=== PATIENT | female | born 1975 | race American Indian/Alaskan Native ===

== ENCOUNTER 2022-05-06 02:53 | Emergency (ER) | payer MEDICAID ==
[2022-05-06] MEDS ORDERED: ETOMIDATE 20 MG/10 ML INJ IV ONE ×2 (03:01→05:45)
[2022-05-06] MEDS ORDERED: SUCCINYLCHOLINE CHLORIDE 200 MG/10 ML INJ MDV ONE (03:02)
[2022-05-06] MEDS ORDERED: SODIUM CHLORIDE 0.9% 1000 ML 1,000 ML ONE ×3 (03:22→07:36)
[2022-05-06] MEDS ORDERED: MIDAZOLAM 5 MG/5 ML INJ MDV IV ONE (03:26)
[2022-05-06] MEDS ORDERED: KETAMINE 200 MG/20 ML INJ MDV IV ONE (03:28)
[2022-05-06] MEDS ORDERED: KETAMINE 500 MG/5 ML VIAL MDV ONE (03:28)
[2022-05-06] MEDS ORDERED: MINERAL OIL/PETROLATUM, WHITE OPHTH OINT 3.5 GM OU PRN (03:35)
[2022-05-06] MEDS ORDERED: LIP THERAPY VASELINE TP PRN (03:35)
[2022-05-06] MEDS ORDERED: SODIUM CHLORIDE 0.9% 1000 ML 1,000 ML IV ONE (03:37)
[2022-05-06] MEDS ORDERED: ONDANSETRON 4 MG/2 ML INJ IV ONE (03:40)
--- NOTE | 2022-05-06 03:57 | Emergency Department Report ---
<LEIA BRANTLEY - Last Filed: 05/06/22 15:24> ED Altered Mental Status HPI - General Stated Complaint: COVID/POSS SEIZURE Time Seen by Provider: 05/06/22 02:53 - Related Data Allergies Allergy/AdvReac Type Severity Reaction Status Date / Time No Known Allergies Allergy Verified 05/06/22 15:39 - Lab Data Result diagrams: 05/06/22 04:06 05/06/22 04:06 - Medical Decision Making CT head reveals acute intraventricular hemorrhage. I discussed case with Dr. Cody who recommended emergent transfer. I spoke with the television production assistant NSGY at [facility]. On my examination (off sedation) gag and corneal reflexes are absent. I discussed poor prognosis with daughter over the phone. [facility] willing to accept per family request. Family will decide whether to place patient on comfort measures or transfer to [facility] and call back with their decision. Signed out at shift change to Dr. Douglas. ED Disposition Clinical Impression: Intracranial hemorrhage, Obtunded, Hydrocephalus Disposition: 02 SHORT TERM HOSPITAL Condition: Stable Referrals: NOVA HANEY MD [Primary Care Provider] - 3-5 Days <SELENA DOUGLAS - Last Filed: 05/06/22 17:16> ED Course - Reevaluation(s) Reevaluation #1: 05/06/22 16:25 Patient not currently on any sedation. As per verbal report from Dr. Brantley, brainstem reflexes are not present. Blood pressure 110/45. Extensive discussion had with patient's daughter, Ms. Bella Herrera Discussed poor neurologic prognosis, and patient's goals of care. Essentially, the patient had instructed family to not pursue aggressive care if she had a poor prognosis, and was not neurologically salvageable All questions are answered. Ms. Blanco will discuss with her family, and we will rediscuss. 05/06/22 17:16 Family is requesting transfer to [facility] for aggressive care. They are specifically requesting medical transfer to [facility]. Dr. Thompson will be the accepting physician. - Lab Data Result diagrams: 05/06/22 04:06 05/06/22 04:06 - Radiology Data CT HEAD WITHOUT CONTRAST INDICATION / CLINICAL INFORMATION: Altered Mental Status. TECHNIQUE: All CT scans at this location are performed using CT dose reduction for ALARA by means of automated exposure control. COMPARISON: None available. FINDINGS: HEMORRHAGE: Moderately extensive intraventricular hemorrhage. Large amount of hemorrhage is in the left lateral ventricle. Hemorrhage extends into the right lateral ventricle, 3rd ventricle, and 4th ventricle. No definite subarachnoid hemorrhage. EXTRA-AXIAL SPACES: Sulci are effaced related to cerebral swelling. VENTRICULAR SYSTEM: Bilateral ventr iculomegaly, left greater than right. CEREBRAL PARENCHYMA: Subependymal, periventricular edema. No acute territorial infarct. Hemorrhage could potentially arise from left basal ganglia. MIDLINE SHIFT / HERNIATION: None. CEREBELLUM / BRAINSTEM: No significant abnormality. ORBITS: Normal as visualize d. SOFT TISSUES: No significant abnormality. SKULL: No significant abnormality. PARANASAL SINUSES / MASTOID AIR CELLS: Small air-fluid level in the right maxillary sinus. ADDITIONAL FINDINGS: None. IMPRESSION: 1. Moderately extensive intraventricular hemorrhage with ventriculomegaly possibly representing obstructive hydrocephalus. Hemorrhage source is uncertain but could potentially arise from the left basal ganglia with intraventricular extension. CTA head is recommended for further evaluation. 2. Moderate cerebral edema but no herniation. CRITICAL RESULT: Intracranial hemorrhage Time of Discovery ([employer]/CDT): 2:30 PM Time of Communicati on ([employer]/CDT): 2:37 PM Licensed Practitioner Receiving Report: Dr. Douglas in the ED Read-Back Performed: Yes. Signer Name: Vesna Carrillo MD Signed: 05/06/2022 2:38 PM Workstation Name: [id number] <LEIA ROSE - Last Filed: 05/06/22 21:30> ED Altered Mental Status HPI - General Source: EMS Mode of arrival: Stretcher Limitations: Altered Mental Status - History of Present Illness Initial Comments: 46-year-old obese female with no known significant past medical history presents to the hospital with alteration in mental status and vomiting. History obtained from EMS. They state daughter at the scene inform them that patient is COVID- positive. For the last 3 to 4 days she has had nausea and vomiting. Tonight after persistent nausea and vomiting she went to sleep for an hour and they could not wake her up. They report that patient did have vomiting in route to the hospital and therefore placed on her side but minimal response to painful stimuli. Room air saturation 93%. Patient was noted to be incontinent of urine. No known history of seizures. Patient is obtunded and not unable to obtain any history of present illness ED Review of Systems ROS: Stated complaint: COVID/POSS SEIZURE Other details as noted in HPI Comment: Unobtainable due to pts medical conditions ED Physical Exam - General Limitations: Altered Mental Status - Other Other exam information: General: Unresponsive Head: Atraumatic Eyes: Pupils equal reactive to light ENT: Moist mucous membranes, vomit noted in nostril Neck: Normal appearance Chest: Clear to auscultation bilaterally, sonorous respiratory CV: Regular rate and rhythm Abdomen: Soft, normal bowel sounds, nontender, nondistended, no rebound or guarding : Urinary incontinence Back: Normal inspection Extremity: Normal inspection Neuro: Patient is obtunded. Minimal response with sternal rub. Sonorous respirations. GCS equals 6 (E1, V1, M4). Psych: Unresponsive Skin: No rash, warm to touch ED Course Vital Signs 05/06/22 05/06/22 05/06/22 02:55 03:35 03:37 Temperature 98.2 F Pulse Rate 76 Respiratory 22 Rate Blood Pressure 235/174 Blood Pressure 152/104 [Right] O2 Sat by Pulse 96 96 Oximetry 05/06/22 05/06/22 05/06/22 03:41 03:56 04:00 Temperature Pulse Rate 119 H 110 H Respiratory Rate Blood Pressure Blood Pressure 196/137 190/119 179/125 [Right] O2 Sat by Pulse Oximetry 05/06/22 05/06/22 05/06/22 04:07 04:10 05:24 Temperature Pulse Rate 94 H 100 H 100 H Respiratory 10 L 16 12 Rate Blood Pressure 179/125 Blood Pressure 179/125 [Right] O2 Sat by Pulse 97 99 99 Oximetry 05/06/22 05/06/22 05/06/22 05:39 05:53 06:00 Temperature Pulse Rate 82 133 H Respiratory 29 H 17 Rate Blood Pressure Blood Pressure 270/110 [Right] O2 Sat by Pulse 100 98 Oximetry 05/06/22 05/06/22 05/06/22 06:16 06:24 06:30 Temperature Pulse Rate 100 H 159 H 136 H Respiratory 20 32 H 18 Rate Blood Pressure Blood Pressure 218/135 [Right] O2 Sat by Pulse 99 99 95 Oximetry 05/06/22 05/06/22 05/06/22 06:46 06:48 07:00 Temperature Pulse Rate 170 H 170 H 167 H Respiratory 18 26 H 18 Rate Blood Pressure Blood Pressure 136/89 [Right] O2 Sat by Pulse 97 97 96 Oximetry 05/06/22 05/06/22 05/06/22 07:16 07:30 07:46 Temperature Pulse Rate 166 H 153 H 145 H Respiratory 18 17 18 Rate Blood Pressure 114/50 Blood Pressure [Right] O2 Sat by Pulse 96 97 96 Oximetry 05/06/22 05/06/22 05/06/22 07:51 08:00 08:16 Temperature Pulse Rate 142 H 138 H 130 H Respiratory 18 18 Rate Blood Pressure 114/53 Blood Pressure [Right] O2 Sat by Pulse 97 Oximetry 05/06/22 05/06/22 05/06/22 08:22 08:30 08:45 Temperature Pulse Rate 126 H 121 H 92 H Respiratory 18 18 Rate Blood Pressure 99/51 Blood Pressure 100/56 [Right] O2 Sat by Pulse 98 98 99 Oximetry 05/06/22 05/06/22 05/06/22 08:46 09:00 09:13 Temperature Pulse Rate 112 H 103 H 93 H Respiratory 17 18 18 Rate Blood Pressure Blood Pressure 99/51 [Right] O2 Sat by Pulse 99 99 99 Oximetry 05/06/22 05/06/22 05/06/22 09:16 09:30 09:46 Temperature Pulse Rate 92 H 89 87 Respiratory 18 18 18 Rate Blood Pressure Blood Pressure [Right] O2 Sat by Pulse 99 99 99 Oximetry 05/06/22 05/06/22 05/06/22 10:00 10:04 10:31 Temperature Pulse Rate 85 85 81 Respiratory 18 18 18 Rate Blood Pressure Blood Pressure 95/55 93/61 [Right] O2 Sat by Pulse 99 99 Oximetry 05/06/22 05/06/22 05/06/22 11:12 11:43 14:14 Temperature Pulse Rate 79 76 72 Respiratory 18 16 Rate Blood Pressure Blood Pressure 105/66 93/57 [Right] O2 Sat by Pulse 99 98 98 Oximetry 05/06/22 05/06/22 05/06/22 14:37 16:15 17:56 Temperature Pulse Rate 72 61 61 Respiratory 17 Rate Blood Pressure Blood Pressure 110/55 [Right] O2 Sat by Pulse 97 98 97 Oximetry 05/06/22 05/06/22 20:57 21:17 Temperature Pulse Rate 58 L 58 L Respiratory Rate Blood Pressure Blood Pressure 105/53 [Right] O2 Sat by Pulse 98 Oximetry - Reevaluation(s) Reevaluation #1: 05/06/22 Patient seen immediate upon ED arrival. Decision made to intubate given low GCS score and minimal response to pain with continued episodes of vomiting or urinary incontinence 05/06/22 05:25 We had difficulty obtaining patient's blood pressure and pressures were recorded initially from blood pressure cuff placed in the right lower leg 05/06/22 06:01 Hypertension noted however, patient is also agitated on the vent and requires increased sedation. Heart rate 155. Nurse instructed to increase propofol. Heart rate decreased to 106. Nurse instructed to liberally increase propofol as long as blood pressure to achieve adequate sedation. Imaging test pending - Intubation Time Out Performed: Yes Sedative: Etomidate Mg Given: 20 Paralytic: Succinylcholine Mg Given: 120 Laryngoscope: fiberoptic video scope Size: 3 ET Tube Size: 7.5 Tube Secured Depth (cm): 25 Tube Secured Location: lips Tube Placement Confirmation: visualized tube passing t, equal breath sounds bilat, no breath sounds over epi, confirmation by capnometr Patient Tolerated Procedure: well, no complications Intubation Complications: none Additional Comments: Shortly after intubation patient became unresponsive and fighting the vent. During that time she had a period of hypoxia. She required administration of IV Versed and initiation of propofol. Patient was bagged until O2 saturation improved and placed back on the vent - Lab Data Result diagrams: 05/06/22 04:06 05/06/22 04:06 Lab Results 05/06/22 05/06/22 05/06/22 Range/Units 04:06 04:06 04:06 WBC 10.3 (4.5-11.0) K/mm3 RBC 6.00 H (3.65-5.03) M/mm3 Hgb 14.6 H (10.1-14.3) gm/dl Hct 44.6 H (30.3-42.9) % MCV 74 L (79-97) fl MCH 24 L (28-32) pg MCHC 33 (30-34) % RDW 16.3 H (13.2-15.2) % Plt Count 305 (140-440) K/mm3 Lymph % (Auto) 13.8 (13.4-35.0) % [place] % (Auto) 3.3 (0.0-7.3) % Eos % (Auto) 0.2 (0.0-4.3) % Baso % (Auto) 0.4 (0.0-1.8) % Lymph # (Auto) 1.4 (1.2-5.4) K/mm3 [place] # (Auto) 0.3 (0.0-0.8) K/mm3 Eos # (Auto) 0.0 (0.0-0.4) K/mm3 Baso # (Auto) 0.0 (0.0-0.1) K/mm3 Seg Neutrophils % 82.3 H (40.0-70.0) % Seg Neutrophils # 8.5 H (1.8-7.7) K/mm3 PT 12.8 (12.2-14.9) Sec. INR 0.85 L (0.87-1.13) D-Dimer 704.30 H (0-234) ng/mlDDU ABG pH (7.350-7.450) pH Units ABG pCO2 mm Hg ABG pO2 (80.0-90.0) mm Hg ABG HCO3 (20.0-26.0) mmol/L ABG O2 Saturation (95.0-99.0) % ABG O2 Content (0.0-44) ABG Base Excess (-2.0-3.0) mmol/L ABG Hemoglobin (12.0-16.0) gm/dl ABG Carboxyhemoglobin (0.0-5.0) % ABG Methemoglobin (0.0-1.5) % Oxyhemoglobin (95.0-99.0) % FiO2 % Sodium 137 (137-145) mmol/L Potassium 3.9 (3.6-5.0) mmol/L Chloride 95.5 L (98-107) mmol/L Carbon Dioxide 27 (22-30) mmol/L Anion Gap 18 mmol/L BUN 13 (7-17) mg/dL Creatinine 1.1 (0.6-1.2) mg/dL Estimated GFR 54 ml/min BUN/Creatinine Ratio 12 % Glucose 253 H (65-100) mg/dL Lactic Acid (0.7-2.0) mmol/L Calcium 9.8 (8.4-10.2) mg/dL Ferritin (10.0-200.0) ng/mL Total Bilirubin 0.40 (0.1-1.2) mg/dL AST 23 (5-40) units/L ALT 20 (7-56) units/L Alkaline Phosphatase 79 (35-129) units/L Ammonia (25-60) umol/L Lactate Dehydrogenase (91-180) units/L Total Creatine Kinase 207 H (30-135) units/L Troponin T < 0.010 (0.00-0.029) ng/mL C-Reactive Protein (0.00-1.30) mg/dL Total Protein 8.5 H (6.3-8.2) g/dL Albumin 4.0 (3.9-5) g/dL Albumin/Globulin Ratio 0.9 % HCG, Qual (Negative) Urine Color (Yellow) Urine Turbidity (Clear) Urine pH (5.0-7.0) Ur Specific [place] (1.003-1.030) Urine Protein (Negative) mg/dL Urine Glucose (UA) (Negative) mg/dL Urine Ketones (Negative) mg/dL Urine Blood (Negative) Urine Nitrite (Negative) Urine Bilirubin (Negative) Urine Urobilinogen (<2.0) mg/dL Ur Leukocyte Esterase (Negative) Urine WBC (Auto) (0.0-6.0) /HPF Urine RBC (Auto) (0.0-6.0) /HPF U Epithel Cells (Auto) (0-13.0) /HPF Urine Bacteria (Auto) (Negative) /HPF Hyaline Casts /LPF Salicylates (2.8-20.0) mg/dL Urine Opiates Screen Urine Methadone Screen Acetaminophen (10.0-30.0) ug/mL Ur Barbiturates Screen Ur Phencyclidine Scrn Ur Amphetamines Screen U Benzodiazepines Scrn Urine Cocaine Screen U Marijuana (THC) Screen Drugs of Abuse Note Plasma/Serum Alcohol (0-0.07) % 05/06/22 05/06/22 05/06/22 Range/Units 04:06 04:06 04:06 WBC (4.5-11.0) K/mm3 RBC (3.65-5.03) M/mm3 Hgb (10.1-14.3) gm/dl Hct (30.3-42.9) % MCV (79-97) fl MCH (28-32) pg MCHC (30-34) % RDW (13.2-15.2) % Plt Count (140-440) K/mm3 Lymph % (Auto) (13.4-35.0) % [place] % (Auto) (0.0-7.3) % Eos % (Auto) (0.0-4.3) % Baso % (Auto) (0.0-1.8) % Lymph # (Auto) (1.2-5.4) K/mm3 [place] # (Auto) (0.0-0.8) K/mm3 Eos # (Auto) (0.0-0.4) K/mm3 Baso # (Auto) (0.0-0.1) K/mm3 Seg Neutrophils % (40.0-70.0) % Seg Neutrophils # (1.8-7.7) K/mm3 PT (12.2-14.9) Sec. INR (0.87-1.13) D-Dimer (0-234) ng/mlDDU ABG pH (7.350-7.450) pH Units ABG pCO2 mm Hg ABG pO2 (80.0-90.0) mm Hg ABG HCO3 (20.0-26.0) mmol/L ABG O2 Saturation (95.0-99.0) % ABG O2 Content (0.0-44) ABG Base Excess (-2.0-3.0) mmol/L ABG Hemoglobin (12.0-16.0) gm/dl ABG Carboxyhemoglobin (0.0-5.0) % ABG Methemoglobin (0.0-1.5) % Oxyhemoglobin (95.0-99.0) % FiO2 % Sodium (137-145) mmol/L Potassium (3.6-5.0) mmol/L Chloride (98-107) mmol/L Carbon Dioxide (22-30) mmol/L Anion Gap mmol/L BUN (7-17) mg/dL Creatinine (0.6-1.2) mg/dL Estimated GFR ml/min BUN/Creatinine Ratio % Glucose (65-100) mg/dL Lactic Acid 3.10 H* (0.7-2.0) mmol/L Calcium (8.4-10.2) mg/dL Ferritin (10.0-200.0) ng/mL Total Bilirubin (0.1-1.2) mg/dL AST (5-40) units/L ALT (7-56) units/L Alkaline Phosphatase (35-129) units/L Ammonia (25-60) umol/L Lactate Dehydrogenase (91-180) units/L Total Creatine Kinase (30-135) units/L Troponin T (0.00-0.029) ng/mL C-Reactive Protein (0.00-1.30) mg/dL Total Protein (6.3-8.2) g/dL Albumin (3.9-5) g/dL Albumin/Globulin Ratio % HCG, Qual (Negative) Urine Color (Yellow) Urine Turbidity (Clear) Urine pH (5.0-7.0) Ur Specific [place] (1.003-1.030) Urine Protein (Negative) mg/dL Urine Glucose (UA) (Negative) mg/dL Urine Ketones (Negative) mg/dL Urine Blood (Negative) Urine Nitrite (Negative) Urine Bilirubin (Negative) Urine Urobilinogen (<2.0) mg/dL Ur Leukocyte Esterase (Negative) Urine WBC (Auto) (0.0-6.0) /HPF Urine RBC (Auto) (0.0-6.0) /HPF U Epithel Cells (Auto) (0-13.0) /HPF Urine Bacteria (Auto) (Negative) /HPF Hyaline Casts /LPF Salicylates < 0.3 L (2.8-20.0) mg/dL Urine Opiates Screen Urine Methadone Screen Acetaminophen 5.0 L (10.0-30.0) ug/mL Ur Barbiturates Screen Ur Phencyclidine Scrn Ur Amphetamines Screen U Benzodiazepines Scrn Urine Cocaine Screen U Marijuana (THC) Screen Drugs of Abuse Note Plasma/Serum Alcohol (0-0.07) % 05/06/22 05/06/22 05/06/22 Range/Units 04:06 04:06 04:06 WBC (4.5-11.0) K/mm3 RBC (3.65-5.03) M/mm3 Hgb (10.1-14.3) gm/dl Hct (30.3-42.9) % MCV (79-97) fl MCH (28-32) pg MCHC (30-34) % RDW (13.2-15.2) % Plt Count (140-440) K/mm3 Lymph % (Auto) (13.4-35.0) % [place] % (Auto) (0.0-7.3) % Eos % (Auto) (0.0-4.3) % Baso % (Auto) (0.0-1.8) % Lymph # (Auto) (1.2-5.4) K/mm3 [place] # (Auto) (0.0-0.8) K/mm3 Eos # (Auto) (0.0-0.4) K/mm3 Baso # (Auto) (0.0-0.1) K/mm3 Seg Neutrophils % (40.0-70.0) % Seg Neutrophils # (1.8-7.7) K/mm3 PT (12.2-14.9) Sec. INR (0.87-1.13) D-Dimer (0-234) ng/mlDDU ABG pH (7.350-7.450) pH Units ABG pCO2 mm Hg ABG pO2 (80.0-90.0) mm Hg ABG HCO3 (20.0-26.0) mmol/L ABG O2 Saturation (95.0-99.0) % ABG O2 Content (0.0-44) ABG Base Excess (-2.0-3.0) mmol/L ABG Hemoglobin (12.0-16.0) gm/dl ABG Carboxyhemoglobin (0.0-5.0) % ABG Methemoglobin (0.0-1.5) % Oxyhemoglobin (95.0-99.0) % FiO2 % Sodium (137-145) mmol/L Potassium (3.6-5.0) mmol/L Chloride (98-107) mmol/L Carbon Dioxide (22-30) mmol/L Anion Gap mmol/L BUN (7-17) mg/dL Creatinine (0.6-1.2) mg/dL Estimated GFR ml/min BUN/Creatinine Ratio % Glucose (65-100) mg/dL Lactic Acid (0.7-2.0) mmol/L Calcium (8.4-10.2) mg/dL Ferritin (10.0-200.0) ng/mL Total Bilirubin (0.1-1.2) mg/dL AST (5-40) units/L ALT (7-56) units/L Alkaline Phosphatase (35-129) units/L Ammonia 12.0 L (25-60) umol/L Lactate Dehydrogenase (91-180) units/L Total Creatine Kinase (30-135) units/L Troponin T (0.00-0.029) ng/mL C-Reactive Protein (0.00-1.30) mg/dL Total Protein (6.3-8.2) g/dL Albumin (3.9-5) g/dL Albumin/Globulin Ratio % HCG, Qual Negative (Negative) Urine Color (Yellow) Urine Turbidity (Clear) Urine pH (5.0-7.0) Ur Specific [place] (1.003-1.030) Urine Protein (Negative) mg/dL Urine Glucose (UA) (Negative) mg/dL Urine Ketones (Negative) mg/dL Urine Blood (Negative) Urine Nitrite (Negative) Urine Bilirubin (Negative) Urine Urobilinogen (<2.0) mg/dL Ur Leukocyte Esterase (Negative) Urine WBC (Auto) (0.0-6.0) /HPF Urine RBC (Auto) (0.0-6.0) /HPF U Epithel Cells (Auto) (0-13.0) /HPF Urine Bacteria (Auto) (Negative) /HPF Hyaline Casts /LPF Salicylates (2.8-20.0) mg/dL Urine Opiates Screen Urine Methadone Screen Acetaminophen (10.0-30.0) ug/mL Ur Barbiturates Screen Ur Phencyclidine Scrn Ur Amphetamines Screen U Benzodiazepines Scrn Urine Cocaine Screen U Marijuana (THC) Screen Drugs of Abuse Note Plasma/Serum Alcohol < 0.01 (0-0.07) % 05/06/22 05/06/22 05/06/22 Range/Units 04:06 04:06 05:00 WBC (4.5-11.0) K/mm3 RBC (3.65-5.03) M/mm3 Hgb (10.1-14.3) gm/dl Hct (30.3-42.9) % MCV (79-97) fl MCH (28-32) pg MCHC (30-34) % RDW (13.2-15.2) % Plt Count (140-440) K/mm3 Lymph % (Auto) (13.4-35.0) % [place] % (Auto) (0.0-7.3) % Eos % (Auto) (0.0-4.3) % Baso % (Auto) (0.0-1.8) % Lymph # (Auto) (1.2-5.4) K/mm3 [place] # (Auto) (0.0-0.8) K/mm3 Eos # (Auto) (0.0-0.4) K/mm3 Baso # (Auto) (0.0-0.1) K/mm3 Seg Neutrophils % (40.0-70.0) % Seg Neutrophils # (1.8-7.7) K/mm3 PT (12.2-14.9) Sec. INR (0.87-1.13) D-Dimer (0-234) ng/mlDDU ABG pH 7.407 (7.350-7.450) pH Units ABG pCO2 39.4 mm Hg ABG pO2 75.0 L (80.0-90.0) mm Hg ABG HCO3 24.2 (20.0-26.0) mmol/L ABG O2 Saturation 96.8 (95.0-99.0) % ABG O2 Content 19.3 (0.0-44) ABG Base Excess -0.3 (-2.0-3.0) mmol/L ABG Hemoglobin 14.4 (12.0-16.0) gm/dl ABG Carboxyhemoglobin 1.0 (0.0-5.0) % ABG Methemoglobin 0.5 (0.0-1.5) % Oxyhemoglobin 95.2 (95.0-99.0) % FiO2 65 % Sodium (137-145) mmol/L Potassium (3.6-5.0) mmol/L Chloride (98-107) mmol/L Carbon Dioxide (22-30) mmol/L Anion Gap mmol/L BUN (7-17) mg/dL Creatinine (0.6-1.2) mg/dL Estimated GFR ml/min BUN/Creatinine Ratio % Glucose 242 H (65-100) mg/dL Lactic Acid (0.7-2.0) mmol/L Calcium (8.4-10.2) mg/dL Ferritin 48.5 (10.0-200.0) ng/mL Total Bilirubin (0.1-1.2) mg/dL AST (5-40) units/L ALT (7-56) units/L Alkaline Phosphatase (35-129) units/L Ammonia (25-60) umol/L Lactate Dehydrogenase 348 H (91-180) units/L Total Creatine Kinase (30-135) units/L Troponin T (0.00-0.029) ng/mL C-Reactive Protein 1.10 (0.00-1.30) mg/dL Total Protein (6.3-8.2) g/dL Albumin (3.9-5) g/dL Albumin/Globulin Ratio % HCG, Qual (Negative) Urine Color (Yellow) Urine Turbidity (Clear) Urine pH (5.0-7.0) Ur Specific [place] (1.003-1.030) Urine Protein (Negative) mg/dL Urine Glucose (UA) (Negative) mg/dL Urine Ketones (Negative) mg/dL Urine Blood (Negative) Urine Nitrite (Negative) Urine Bilirubin (Negative) Urine Urobilinogen (<2.0) mg/dL Ur Leukocyte Esterase (Negative) Urine WBC (Auto) (0.0-6.0) /HPF Urine RBC (Auto) (0.0-6.0) /HPF U Epithel Cells (Auto) (0-13.0) /HPF Urine Bacteria (Auto) (Negative) /HPF Hyaline Casts /LPF Salicylates (2.8-20.0) mg/dL Urine Opiates Screen Urine Methadone Screen Acetaminophen (10.0-30.0) ug/mL Ur Barbiturates Screen Ur Phencyclidine Scrn Ur Amphetamines Screen U Benzodiazepines Scrn Urine Cocaine Screen U Marijuana (THC) Screen Drugs of Abuse Note Plasma/Serum Alcohol (0-0.07) % 05/06/22 05/06/22 05/06/22 Range/Units 06:24 06:24 08:54 WBC (4.5-11.0) K/mm3 RBC (3.65-5.03) M/mm3 Hgb (10.1-14.3) gm/dl Hct (30.3-42.9) % MCV (79-97) fl MCH (28-32) pg MCHC (30-34) % RDW (13.2-15.2) % Plt Count (140-440) K/mm3 Lymph % (Auto) (13.4-35.0) % [place] % (Auto) (0.0-7.3) % Eos % (Auto) (0.0-4.3) % Baso % (Auto) (0.0-1.8) % Lymph # (Auto) (1.2-5.4) K/mm3 [place] # (Auto) (0.0-0.8) K/mm3 Eos # (Auto) (0.0-0.4) K/mm3 Baso # (Auto) (0.0-0.1) K/mm3 Seg Neutrophils % (40.0-70.0) % Seg Neutrophils # (1.8-7.7) K/mm3 PT (12.2-14.9) Sec. INR (0.87-1.13) D-Dimer (0-234) ng/mlDDU ABG pH (7.350-7.450) pH Units ABG pCO2 mm Hg ABG pO2 (80.0-90.0) mm Hg ABG HCO3 (20.0-26.0) mmol/L ABG O2 Saturation (95.0-99.0) % ABG O2 Content (0.0-44) ABG Base Excess (-2.0-3.0) mmol/L ABG Hemoglobin (12.0-16.0) gm/dl ABG Carboxyhemoglobin (0.0-5.0) % ABG Methemoglobin (0.0-1.5) % Oxyhemoglobin (95.0-99.0) % FiO2 % Sodium (137-145) mmol/L Potassium (3.6-5.0) mmol/L Chloride (98-107) mmol/L Carbon Dioxide (22-30) mmol/L Anion Gap mmol/L BUN (7-17) mg/dL Creatinine (0.6-1.2) mg/dL Estimated GFR ml/min BUN/Creatinine Ratio % Glucose (65-100) mg/dL Lactic Acid 3.20 H* (0.7-2.0) mmol/L Calcium (8.4-10.2) mg/dL Ferritin (10.0-200.0) ng/mL Total Bilirubin (0.1-1.2) mg/dL AST (5-40) units/L ALT (7-56) units/L Alkaline Phosphatase (35-129) units/L Ammonia (25-60) umol/L Lactate Dehydrogenase (91-180) units/L Total Creatine Kinase (30-135) units/L Troponin T (0.00-0.029) ng/mL C-Reactive Protein (0.00-1.30) mg/dL Total Protein (6.3-8.2) g/dL Albumin (3.9-5) g/dL Albumin/Globulin Ratio % HCG, Qual (Negative) Urine Color Straw (Yellow) Urine Turbidity Clear (Clear) Urine pH 8.0 H (5.0-7.0) Ur Specific [place] 1.009 (1.003-1.030) Urine Protein >500 (Negative) mg/dL Urine Glucose (UA) 150 (Negative) mg/dL Urine Ketones Neg (Negative) mg/dL Urine Blood Sm (Negative) Urine Nitrite Neg (Negative) Urine Bilirubin Neg (Negative) Urine Urobilinogen < 2.0 (<2.0) mg/dL Ur Leukocyte Esterase Neg (Negative) Urine WBC (Auto) < 1.0 (0.0-6.0) /HPF Urine RBC (Auto) < 1.0 (0.0-6.0) /HPF U Epithel Cells (Auto) 44.0 H (0-13.0) /HPF Urine Bacteria (Auto) 1+ (Negative) /HPF Hyaline Casts 2 /LPF Salicylates (2.8-20.0) mg/dL Urine Opiates Screen Negative Urine Methadone Screen Negative Acetaminophen (10.0-30.0) ug/mL Ur Barbiturates Screen Negative Ur Phencyclidine Scrn Negative Ur Amphetamines Screen Negative U Benzodiazepines Scrn Positive Urine Cocaine Screen Negative U Marijuana (THC) Screen Negative Drugs of Abuse Note Disclamer Plasma/Serum Alcohol (0-0.07) % 05/06/22 Range/Units 11:27 WBC (4.5-11.0) K/mm3 RBC (3.65-5.03) M/mm3 Hgb (10.1-14.3) gm/dl Hct (30.3-42.9) % MCV (79-97) fl MCH (28-32) pg MCHC (30-34) % RDW (13.2-15.2) % Plt Count (140-440) K/mm3 Lymph % (Auto) (13.4-35.0) % [place] % (Auto) (0.0-7.3) % Eos % (Auto) (0.0-4.3) % Baso % (Auto) (0.0-1.8) % Lymph # (Auto) (1.2-5.4) K/mm3 [place] # (Auto) (0.0-0.8) K/mm3 Eos # (Auto) (0.0-0.4) K/mm3 Baso # (Auto) (0.0-0.1) K/mm3 Seg Neutrophils % (40.0-70.0) % Seg Neutrophils # (1.8-7.7) K/mm3 PT (12.2-14.9) Sec. INR (0.87-1.13) D-Dimer (0-234) ng/mlDDU ABG pH (7.350-7.450) pH Units ABG pCO2 mm Hg ABG pO2 (80.0-90.0) mm Hg ABG HCO3 (20.0-26.0) mmol/L ABG O2 Saturation (95.0-99.0) % ABG O2 Content (0.0-44) ABG Base Excess (-2.0-3.0) mmol/L ABG Hemoglobin (12.0-16.0) gm/dl ABG Carboxyhemoglobin (0.0-5.0) % ABG Methemoglobin (0.0-1.5) % Oxyhemoglobin (95.0-99.0) % FiO2 % Sodium (137-145) mmol/L Potassium (3.6-5.0) mmol/L Chloride (98-107) mmol/L Carbon Dioxide (22-30) mmol/L Anion Gap mmol/L BUN (7-17) mg/dL Creatinine (0.6-1.2) mg/dL Estimated GFR ml/min BUN/Creatinine Ratio % Glucose (65-100) mg/dL Lactic Acid 1.90 (0.7-2.0) mmol/L Calcium (8.4-10.2) mg/dL Ferritin (10.0-200.0) ng/mL Total Bilirubin (0.1-1.2) mg/dL AST (5-40) units/L ALT (7-56) units/L Alkaline Phosphatase (35-129) units/L Ammonia (25-60) umol/L Lactate Dehydrogenase (91-180) units/L Total Creatine Kinase (30-135) units/L Troponin T (0.00-0.029) ng/mL C-Reactive Protein (0.00-1.30) mg/dL Total Protein (6.3-8.2) g/dL Albumin (3.9-5) g/dL Albumin/Globulin Ratio % HCG, Qual (Negative) Urine Color (Yellow) Urine Turbidity (Clear) Urine pH (5.0-7.0) Ur Specific [place] (1.003-1.030) Urine Protein (Negative) mg/dL Urine Glucose (UA) (Negative) mg/dL Urine Ketones (Negative) mg/dL Urine Blood (Negative) Urine Nitrite (Negative) Urine Bilirubin (Negative) Urine Urobilinogen (<2.0) mg/dL Ur Leukocyte Esterase (Negative) Urine WBC (Auto) (0.0-6.0) /HPF Urine RBC (Auto) (0.0-6.0) /HPF U Epithel Cells (Auto) (0-13.0) /HPF Urine Bacteria (Auto) (Negative) /HPF Hyaline Casts /LPF Salicylates (2.8-20.0) mg/dL Urine Opiates Screen Urine Methadone Screen Acetaminophen (10.0-30.0) ug/mL Ur Barbiturates Screen Ur Phencyclidine Scrn Ur Amphetamines Screen U Benzodiazepines Scrn Urine Cocaine Screen U Marijuana (THC) Screen Drugs of Abuse Note Plasma/Serum Alcohol (0-0.07) % - EKG Data -: EKG Interpreted by Me EKG shows normal: sinus rhythm, ST-T waves (no stemi) Rate: tachycardia (106) When compared to previous EKG there are: previous EKG unavailable - Radiology Data Radiology results: report reviewed CHEST 1 VIEW 05/06/2022 3:11 AM INDICATION / CLINICAL INFORMATION: ETT placement. COMPARISON: None available. FINDINGS: SUPPORT DEVICES: Endotracheal tube terminates approximately 3.1 cm from the adilia. There is an enteric tube which terminates distal to the field of view and below the diaphragm. HEART / MEDIASTINUM: Cardiomegaly. LUNGS / PLEURA: No significant pulmonary or pleural abnormality. No pneumothorax. ADDITIONAL FINDINGS: No significant additional findings. IMPRESSION: 1. No acute findings. - Medical Decision Making 46-year-old female with COVID diagnosis presents to the hospital nausea vomiting alteration in mental status. Patient had minimal response to verbal stimuli with vomiting and urinary incontinence therefore she was intubated for airway protection. ABG while intubated does not reveal significant hypoxia or acid- base disturbance. Elevated lactic acid noted. Elevated D-dimer noted. Patient is awaiting imaging a CT head, CT angiogram chest, and CT abdomen pelvis to rule out acute pathology. Patient did become more responsive and combative after intubation but is currently sedated on propofol drip. Pt s/o to DR Brantley to follow and admit to ICU Critical Care Time: Yes Critical care time in (mins) excluding proc time.: 35 Critical care attestation.: If time is entered above; I have spent that time in minutes in the direct care of this critically ill patient, excluding procedure time. Critical Care Time: 35 Minutes of critical care time excluding procedures were used in the care of the patient. I came immediately to the bedside upon patient's arrival. I obtained history from EMS at the bedside. I discussed treatment plan with the nursing team members. I reviewed electronic record. I Patient required multiple interventions and reassessments. ED Disposition Is pt being admited?: No Time of Disposition: 21:30 (awaiting transport)
[2022-05-06] MEDS ORDERED: MIDAZOLAM 5 MG/5 ML INJ MDV IV NR (04:00)
--- NOTE | 2022-05-06 04:19 | XRay Report ---
CHEST 1 VIEW 05/06/2022 3:11 AM INDICATION / CLINICAL INFORMATION: ETT placement. COMPARISON: None available. FINDINGS: SUPPORT DEVICES: Endotracheal tube terminates approximately 3.1 cm from the adilia. There is an enter ic tube which terminates distal to the field of view and below the diaphragm. HEART / MEDIASTINUM: Cardiomegaly. LUNGS / PLEURA: No significant pulmonary or pleural abnormality. No pneumothorax. ADDITIONAL FINDINGS: No significant additional findings. IMPRESSION: 1. No acute findings. Signer Name: Uriah Kendrick DO Signed: 05/06/2022 4:15 AM Workstation Name: [id number]
[2022-05-06 04:26] LABS: Basophils % (Auto) 0.4 % (0.0-1.8); Eosinophils % (Auto) 0.2 % (0.0-4.3); Hematocrit 44.6 % (30.3-42.9); Hemoglobin 14.6 gm/dl (10.1-14.3); Lymphocytes # (Auto) 1.4 K/mm3 (1.2-5.4); Lymphocytes % (Auto) 13.8 % (13.4-35.0); Mean Corpuscular HGB Conc 33 % (30-34); Mean Corpuscular Volume 74 fl (79-97); Monocytes # (Auto) 0.3 K/mm3 (0.0-0.8); Monocytes % (Auto) 3.3 % (0.0-7.3); Platelet Count 305 K/mm3 (140-440); Red Cell Distribution Width 16.3 % (13.2-15.2)
[2022-05-06 04:35] LABS: INR 0.85 (0.87-1.13)
[2022-05-06 04:51] LABS: Alanine Aminotransferase 20 units/L (7-56); BUN/Creatinine Ratio 12; Blood Urea Nitrogen 13 mg/dL (7-17); Calcium 9.8 mg/dL (8.4-10.2); Hemolysis Index 8
[2022-05-06 05:12] LABS: ABG Base Excess -0.3 mmol/L (-2.0-3.0); ABG HCO3 24.2 mmol/L (20.0-26.0); ABG Methemoglobin 0.5 % (0.0-1.5); ABG Oxygen Saturation 96.8 % (95.0-99.0); ABG PCO2 39.4 mm Hg; ABG PH 7.407 pH Units (7.350-7.450)
[2022-05-06] MEDS ORDERED: SUCCINYLCHOLINE CHLORIDE 200 MG/10 ML INJ MDV IV ONE (05:45)
[2022-05-06 06:37] LABS: C-Reactive Protein 1.1 mg/dL (0.00-1.30)
[2022-05-06 06:49] LABS: Bilirubin,Urine NEG (Negative); Blood,Urine SM (Negative); Color,Urine Straw (Yellow); Urobilinogen,Urine < 2.0 mg/dL (<2.0)
[2022-05-06] MEDS ORDERED: ADENOSINE 6 MG/2 ML INJ ONE (06:52)
[2022-05-06 06:53] LABS: Protein,Urine >500 mg/dL (Negative)
[2022-05-06 06:56] LABS: RBC,Urine < 1.0 /HPF (0.0-6.0); WBC,Urine < 1.0 /HPF (0.0-6.0)
[2022-05-06 06:58] LABS: Amphetamine Screen,Urine Negative; Cannabinoid Screen,Urine Negative; Cocaine Screen,Urine Negative; Methadone Screen,Urine Negative; Opiate Screen,Urine Negative
[2022-05-06] MEDS ORDERED: ADENOSINE 6 MG/2 ML INJ IV ONE ×3 (07:03→07:19)
[2022-05-06 07:09] LABS: Bacteria,Urine 1+ /HPF (Negative); Hyaline Casts,Urine 2 /LPF
[2022-05-06] MEDS ORDERED: dilTIAZem 25 MG/5 ML INJ IV ONE (07:17)
[2022-05-06 07:25] LABS: Benzodiazepines Screen,Urine Positive
[2022-05-06] MEDS ORDERED: MIDAZOLAM 2 MG/2 ML INJ IV PRN (07:34)
[2022-05-06] MEDS ORDERED: dilTIAZem/D5W 100 MG/100 ML BAG IV SCH (08:00)
[2022-05-06] MEDS ORDERED: MIDAZOLAM/NS Drip 100mg/100ml 100 MG/100 ML BAG IV SCH (08:00)
[2022-05-06] MEDS ORDERED: FAMOTIDINE 20 MG/2 ML INJ IV SCH (10:00)
[2022-05-06] MEDS ORDERED: SENNOSIDES/DOCUSATE SODIUM 8.6/50 MG TAB FEEDTUBE SCH (10:00)
--- NOTE | 2022-05-06 10:45 | Electrocardiograph Report ---
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
--- NOTE | 2022-05-06 10:46 | Electrocardiograph Report ---
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 Electronically Signed On 05-06-2022 10:46:04 EDT by Eriberto Guerra
--- NOTE | 2022-05-06 15:43 | Cat Scan Report ---
CT HEAD WITHOUT CONTRAST INDICATION / CLINICAL INFORMATION: Altered Mental Status. TECHNIQUE: All CT scans at this location are performed using CT dose reduction for ALARA by means of automated exposure control. COMPARISON: None available. FINDINGS: HEMORRHAGE: Moderately extensive intraventricular hemorrhage. Large amount of hemorrhage is in the le ft lateral ventricle. Hemorrhage extends into the right lateral ventricle, 3rd ventricle, and 4th shimon tricle. No definite subarachnoid hemorrhage. EXTRA-AXIAL SPACES: Sulci are effaced related to cerebral swelling. VENTRICULAR SYSTEM: Bilateral ventriculomegaly, left greater than right. CEREBRAL PARENCHYMA: Subependymal, periventricular edema. No acute territorial infarct. Hemorrhage co uld potentially arise from left basal ganglia. MIDLINE SHIFT / HERNIATION: None. CEREBELLUM / BRAINSTEM: No significant abnormality. ORBITS: Normal as visualized. SOFT TISSUES: No significant abnormality. SKULL: No significant abnormality. PARANASAL SINUSES / MASTOID AIR CELLS: Small air-fluid level in the right maxillary sinus. ADDITIONAL FINDINGS: None. IMPRESSION: 1. 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 Hemorrhage source is uncertain but could potentially arise from the left basal ganglia with intraventricular extension. CTA head is recommended for further evaluation. 2. Moderate cerebral edema but no herniation. CRITICAL RESULT: Intracranial hemorrhage Time of Discovery (ELECTRIC MOTOR ANALYST/CDT): 2:30 PM Time of Communication (ELECTRIC MOTOR ANALYST/CDT): 2:37 PM Licensed Practitioner Receiving Report: Dr. Douglas in the ED Read-Back Performed: Yes. Signer Name: Vesna Carrillo MD Signed: 05/06/2022 3:38 PM Workstation Name: [id number]
[2022-05-06 20:58] VITALS: BP 105/53
== END 2022-05-07 01:05 | disposition short-term general hospital (02) ==
LOC: ED 02:53
DX: I62.9 Nontraumatic intracranial hemorrhage, unspecified (principal); G91.9 Hydrocephalus, unspecified
CPT/HCPCS: 31500; 36415; 70450; 71045; 80053; 80307; 81001; 82140; 82550; 82728; 82803; 82947; 83615; 84145; 84484; 84703; 85025; 85379; 85610; 86140; 87070; 87086; 87205; 93005; 96361; 96365; 96366; 96375; 96376; 99291; J0153; J0330; J2250; J2405; J2704; J3490; J7030; 80320; 94002; G0480